=== PATIENT | female | born 1955 | race Caucasian/White ===

== ENCOUNTER 2019-08-23 13:17 | Emergency (ER) | payer OTHER, MEDICAID ==
[~2019-08-23] VITALS: Ht 162.6 cm; Wt 72.0 kg
[2019-08-23 13:40] VITALS: BP 148/75
== END 2019-08-23 15:20 | disposition home or self-care (01) ==
LOC: ER 14:10
DX: S60.455A Superficial foreign body of left ring finger, initial encounter (principal); I10 Essential (primary) hypertension; X58.XXXA Exposure to other specified factors, initial encounter; Y93.89 Activity, other specified; Y92.89 Other specified places as the place of occurrence of the external cause; Y99.8 Other external cause status
CPT/HCPCS: 99284

== ENCOUNTER 2019-10-02 20:46 | Inpatient (IN) | payer OTHER, MEDICAID ==
[~2019-10-02] VITALS: Ht 154.9 cm; Wt 71.7 kg
[2019-10-02] MEDS ORDERED: SODIUM CHLORIDE 0.9% 1,000 ML IV ONE (20:57)
[2019-10-02] MEDS ORDERED: ONDANSETRON HCL 4MG/2ML INJ IV STA (21:12)
[2019-10-02] MEDS ORDERED: PANTOPRAZOLE SODIUM 40 MG/VIAL IV ONE (21:15)
[2019-10-02 22:14] LABS: BASOPHILS % 0.2 % (0.0-2.0); EOSINOPHILS % 0.1 % (0.0-5.0); HEMATOCRIT. 37.7 % (36.0-48.0); HEMOGLOBIN. 12.7 g/dL (12.0-16.0); LYMPHOCYTES % 11.4 % (20.0-50.0); MEAN CORPUSCULAR HEMOGLOBIN 29.9 pg (28.0-32.0); MEAN CORPUSCULAR VOLUME 89.1 fL (81.0-99.0); MEAN PLATELET VOLUME 9.4 fl (7.4-10.4); MONOCYTES % 5.8 % (2.0-8.0); NEUTROPHILS % 82.5 % (40.0-76.0); PLATELET 249 x1000/uL (130-400); RED BLOOD CELL COUNT 4.23 mill/uL (4.2-5.4); RED CELL DISTRIBUTION WIDTH 15.1 % (11.6-14.6)
[2019-10-02 22:19] LABS: PROTHROMBIN TIME 10.7 sec (9.6-11.0)
[2019-10-02 22:23] LABS: CHLORIDE 112 mEq/L (98-107)
[2019-10-03] VITALS (7 sets, daily range): BP systolic 106–125; BP diastolic 66–81
[2019-10-03] MEDS ORDERED: ACETAMINOPHEN 650MG/20.3ML UDC PO PRN (02:00)
[2019-10-03] MEDS ORDERED: ACETAMINOPHEN 325MG TABLET PO PRN (02:30)
[2019-10-03] MEDS ORDERED: NON FORMULARY PATIENT HOME MED XX SCH (03:45)
[2019-10-03] MEDS: MORPHINE SULFATE 2 MG/ML CPJ (NOT FOR IM USE) IV PRN ×2 (04:46→08:46)
[2019-10-03 05:29] LABS: HEMATOCRIT 34.6 % (36.0-48.0); HEMOGLOBIN 11.4 g/dL (12.0-16.0); MEAN CORPUSCULAR VOLUME 88.1 fL (81.0-99.0); PLATELET 208 x1000/uL (130-400); RED BLOOD CELL COUNT 3.92 mill/uL (4.2-5.4); RED CELL DISTRIBUTION WIDTH 15.1 % (11.6-14.6)
[2019-10-03] MEDS: PANTOPRAZOLE 80 MG in SODIUM CHLORIDE 0.9% 100 ML IV SCH ×2 (05:31→16:46)
[2019-10-03] MEDS ORDERED: HYDROCODONE/ACETAMINOPHEN 5/325MG TABLET PO PRN (11:45)
[2019-10-03] MEDS: SODIUM CHLORIDE 0.9% 1,000 ML IV SCH ×2 (13:08→15:21)
[2019-10-03] MEDS: IPRATROPIUM/ALBUTEROL 0.5-3(2.5)MG/3ML NEB HHN PRN ×2 (13:08→16:22)
[2019-10-03] MEDS: CEFTRIAXONE 1 G PREMIX 50 ML IV SCH (15:48)
[2019-10-03] MEDS: SUCRALFATE 1 G/10 ML UDC PO SCH ×2 (17:54→22:13)
[2019-10-03] MEDS: HYDROMORPHONE HCL/PF 2MG/ML CPJ IV PRN ×2 (18:00→23:12)
[2019-10-03 20:53] LABS: HEMATOCRIT 29.1 % (36.0-48.0); HEMOGLOBIN 9.6 g/dL (12.0-16.0); MEAN CORPUSCULAR VOLUME 88.1 fL (81.0-99.0); PLATELET 218 x1000/uL (130-400); RED BLOOD CELL COUNT 3.31 mill/uL (4.2-5.4); RED CELL DISTRIBUTION WIDTH 14.9 % (11.6-14.6)
[2019-10-03 21:03] LABS: HEPATITIS B SURFACE ANTIGEN NEGATIVE
[2019-10-03 21:33] LABS: HEPATITIS A AB IGM NEGATIVE (NEGATIVE)
[2019-10-03 23:44] LABS: HEMATOCRIT 26.6 % (36.0-48.0); HEMOGLOBIN 8.9 g/dL (12.0-16.0); MEAN CORPUSCULAR HEMOGLOBIN 29.6 pg (28.0-32.0); MEAN CORPUSCULAR VOLUME 88.5 fL (81.0-99.0); PLATELET 191 x1000/uL (130-400); RED BLOOD CELL COUNT 3.01 mill/uL (4.2-5.4); RED CELL DISTRIBUTION WIDTH 15.1 % (11.6-14.6)
[2019-10-03 23:45] LABS: HEMATOCRIT 26.8 % (36.0-48.0); MEAN CORPUSCULAR HEMOGLOBIN 29.6 pg (28.0-32.0); MEAN CORPUSCULAR VOLUME 88.6 fL (81.0-99.0); PLATELET 193 x1000/uL (130-400); RED BLOOD CELL COUNT 3.03 mill/uL (4.2-5.4); RED CELL DISTRIBUTION WIDTH 15.1 % (11.6-14.6)
[2019-10-04] VITALS (15 sets, daily range): BP systolic 84–132; BP diastolic 45–111
[2019-10-04] MEDS: HYDROMORPHONE HCL/PF 2MG/ML CPJ IV PRN ×2 (04:18→09:25)
[2019-10-04] MEDS: PANTOPRAZOLE 80 MG in SODIUM CHLORIDE 0.9% 100 ML IV SCH (06:57)
[2019-10-04 07:16] LABS: BASOPHILS % 0.9 % (0.0-2.0); EOSINOPHILS % 1.3 % (0.0-5.0); HEMOGLOBIN. 9.3 g/dL (12.0-16.0); MEAN CORPUSCULAR HEMOGLOBIN 29.4 pg (28.0-32.0); MEAN CORPUSCULAR VOLUME 88.6 fL (81.0-99.0); MONOCYTES % 8.4 % (2.0-8.0); NEUTROPHILS % 60.4 % (40.0-76.0); PLATELET 208 x1000/uL (130-400); RED BLOOD CELL COUNT 3.16 mill/uL (4.2-5.4); RED CELL DISTRIBUTION WIDTH 15.4 % (11.6-14.6)
[2019-10-04] MEDS: SUCRALFATE 1 G/10 ML UDC PO SCH ×4 (07:30→21:32)
[2019-10-04 07:37] LABS: CHLORIDE 114 mEq/L (98-107)
[2019-10-04] MEDS: SODIUM CHLORIDE 0.9% 1,000 ML IV SCH ×2 (09:00→19:00)
[2019-10-04] MEDS ORDERED: HYDROCODONE/ACETAMINOPHEN 5/325MG TABLET PO PRN (09:30)
[2019-10-04] MEDS: ONDANSETRON HCL 4MG/2ML INJ IV PRN (10:07)
[2019-10-04 13:36] LABS: HEMATOCRIT 28.4 % (36.0-48.0); HEMOGLOBIN 9.3 g/dL (12.0-16.0); MEAN CORPUSCULAR HEMOGLOBIN 29.2 pg (28.0-32.0); MEAN CORPUSCULAR VOLUME 89.5 fL (81.0-99.0); PLATELET 213 x1000/uL (130-400); RED BLOOD CELL COUNT 3.17 mill/uL (4.2-5.4); RED CELL DISTRIBUTION WIDTH 15.1 % (11.6-14.6)
[2019-10-04 14:02] LABS: CHLORIDE 115 mEq/L (98-107)
[2019-10-04] MEDS ORDERED: MIDAZOLAM HCL 5 MG/5 ML VIAL IV PRN (15:34)
[2019-10-04] MEDS ORDERED: FENTANYL CITRATE/PF 50MCG/ML 2ML VIAL ONE (15:34)
[2019-10-04] MEDS ORDERED: FENTANYL CITRATE/PF 50MCG/ML 2ML VIAL IV PRN (15:34)
[2019-10-04] MEDS ORDERED: MIDAZOLAM HCL 5 MG/5 ML VIAL ONE (15:34)
[2019-10-04] MEDS: CEFTRIAXONE 1 G PREMIX 50 ML IV SCH (21:33)
[2019-10-05] VITALS (9 sets, daily range): BP systolic 108–129; BP diastolic 55–85
[2019-10-05] MEDS: SODIUM CHLORIDE 0.9% 1,000 ML IV SCH ×2 (05:00→14:06)
[2019-10-05] MEDS: HYDROMORPHONE HCL/PF 2MG/ML CPJ IV PRN ×3 (05:09→20:33)
[2019-10-05] MEDS: SUCRALFATE 1 G/10 ML UDC PO SCH (06:02)
[2019-10-05 07:35] LABS: BASOPHILS % 0.8 % (0.0-2.0); EOSINOPHILS % 1.4 % (0.0-5.0); HEMATOCRIT. 25.2 % (36.0-48.0); HEMOGLOBIN. 8.4 g/dL (12.0-16.0); MEAN CORPUSCULAR HEMOGLOBIN 29.6 pg (28.0-32.0); MEAN CORPUSCULAR VOLUME 89.2 fL (81.0-99.0); MEAN PLATELET VOLUME 8.8 fl (7.4-10.4); MONOCYTES % 8.8 % (2.0-8.0); PLATELET 191 x1000/uL (130-400); RED BLOOD CELL COUNT 2.83 mill/uL (4.2-5.4); RED CELL DISTRIBUTION WIDTH 15.1 % (11.6-14.6)
[2019-10-05] MEDS: PANTOPRAZOLE SODIUM 40 MG/VIAL IV SCH (08:23)
[2019-10-05 08:32] LABS: CHLORIDE 113 mEq/L (98-107)
[2019-10-05] MEDS ORDERED: LIDOCAINE HCL 1% 20ML VIAL (Pyxis) INJ ONE (09:19)
[2019-10-05] MEDS ORDERED: SODIUM BICARBONATE 4% (2.4MEQ) 5ML VIAL IV ONE (09:19)
[2019-10-05] MEDS: LORAZEPAM 0.5MG TABLET PO PRN ×2 (10:07→23:48)
[2019-10-05] MEDS ORDERED: IOHEXOL-300 50 ML BOTTLE IV ONE (11:18)
[2019-10-05] MEDS ORDERED: FENTANYL CITRATE/PF 50MCG/ML 2ML VIAL ONE (11:48)
[2019-10-05] MEDS ORDERED: MIDAZOLAM HCL 5 MG/5 ML VIAL ONE (11:48)
[2019-10-05] MEDS ORDERED: SIMETHICONE 40 MG/0.6 ML 30ML ONE (11:48)
[2019-10-05] MEDS ORDERED: FENTANYL CITRATE/PF 50MCG/ML 2ML VIAL IV PRN (12:03)
[2019-10-05] MEDS ORDERED: MIDAZOLAM HCL 2 MG/2 ML VIAL IV PRN (12:04)
[2019-10-05] MEDS ORDERED: DIAZEPAM 5 MG/ML 2ML CPJ IV PRN (12:06)
[2019-10-05] MEDS ORDERED: DIAZEPAM 5 MG/ML 2ML CPJ ONE ×2 (12:09→12:16)
[2019-10-05] MEDS ORDERED: DIPHENHYDRAMINE 50MG/ML VIAL IV PRN (12:14)
[2019-10-05] MEDS ORDERED: DIPHENHYDRAMINE 50MG/ML VIAL ONE (12:19)
[2019-10-05] MEDS: SUCRALFATE 1G TABLET PO SCH ×3 (13:53→22:20)
[2019-10-05] MEDS: CEFTRIAXONE 1 G PREMIX 50 ML IV SCH (14:05)
[2019-10-05] MEDS ORDERED: POTASSIUM CHLORIDE 20MEQ TABLET SR PO NR (15:45)
[2019-10-05] MEDS: METOCLOPRAMIDE HCL 10MG/2ML VIAL IV SCH ×2 (17:10→22:20)
[2019-10-05] MEDS ORDERED: SUCRALFATE 1 G/10 ML UDC PO SCH (17:30)
[2019-10-06] VITALS (7 sets, daily range): BP systolic 110–144; BP diastolic 71–111
[2019-10-06] MEDS: HYDROMORPHONE HCL/PF 2MG/ML CPJ IV PRN ×2 (01:07→06:05)
[2019-10-06] MEDS: ONDANSETRON HCL 4MG/2ML INJ IV PRN (01:47)
[2019-10-06] MEDS: PANTOPRAZOLE SODIUM 40 MG/VIAL IV SCH (08:54)
[2019-10-06] MEDS: SUCRALFATE 1G TABLET PO SCH ×2 (08:54→11:49)
[2019-10-06] MEDS: METOCLOPRAMIDE HCL 10MG/2ML VIAL IV SCH ×2 (08:54→11:49)
[2019-10-06] MEDS ORDERED: POTASSIUM CHLORIDE 20MEQ/PACKET PO SCH (10:15)
[2019-10-06] MEDS ORDERED: QUET100T MT (10:20)
[2019-10-06] MEDS ORDERED: ARIP15TA2 PO (11:14)
[2019-10-06] MEDS ORDERED: TRAZ150T78 PO (11:14)
[2019-10-06] MEDS ORDERED: CLON2TAB MT (11:14)
[2019-10-06] MEDS ORDERED: VENL75CA55 PO (11:15)
[2019-10-06] MEDS ORDERED: SUCR1TAB30 PO (11:55)
[2019-10-06] MEDS ORDERED: PROT40 MT (11:55)
== END 2019-10-06 14:15 | disposition home or self-care (01) | DRG 871 ==
LOC: ER 20:46 → 6WST 22:37 → EDBEDREQ 22:47 → EDBEDREQTM 22:47 → ENRESERV 10-03 00:05 → 5EST 10-03 14:20 → 5WST 10-06 10:07
PROVIDERS: ADMIT Internal Medicine; ATTEND Internal Medicine
PROC: 02HV33Z Insertion of Infusion Device into Superior Vena Cava, Percutaneous Approach (ICD-10-PCS; principal; 2019-10-05)
PROC: B548ZZA Ultrasonography of Superior Vena Cava, Guidance (ICD-10-PCS; 2019-10-05)
PROC: B5181ZA Fluoroscopy of Superior Vena Cava using Low Osmolar Contrast, Guidance (ICD-10-PCS; 2019-10-05)
PROC: B51M1ZZ Fluoroscopy of Right Upper Extremity Veins using Low Osmolar Contrast (ICD-10-PCS; 2019-10-05)
PROC: 0DB68ZX Excision of Stomach, Via Natural or Artificial Opening Endoscopic, Diagnostic (ICD-10-PCS; 2019-10-05)
DX: A41.9 Sepsis, unspecified organism (principal); K22.6 Gastro-esophageal laceration-hemorrhage syndrome; R65.21 Severe sepsis with septic shock; K22.11 Ulcer of esophagus with bleeding; K25.4 Chronic or unspecified gastric ulcer with hemorrhage; E87.2 Acidosis; K22.10 Ulcer of esophagus without bleeding; D64.9 Anemia, unspecified; Z96.642 Presence of left artificial hip joint; A08.4 Viral intestinal infection, unspecified; E05.90 Thyrotoxicosis, unspecified without thyrotoxic crisis or storm; E03.9 Hypothyroidism, unspecified; Z60.2 Problems related to living alone; J44.9 Chronic obstructive pulmonary disease, unspecified; I10 Essential (primary) hypertension; Z87.891 Personal history of nicotine dependence; Z98.1 Arthrodesis status
CPT/HCPCS: 36415; 36573; 71045; 74176; 76700; 76937; 80048; 80076; 80320; 82105; 83605; 83880; 84145; 84484; 85027; 86705; 86709; 86803; 86850; 86870; 86900; 87340; 88305; 88312; 88313; 93005; 94640; 96361; 96374; 99291; C1725; C1769; C1893; C9113; J0696; J1170; J1200; J2250; J2270; J2405; J2765; J3010; J3490; J7030; J7050; J7620; Q9967; G0480

== ENCOUNTER 2019-10-08 09:24 | Inpatient (IN) | payer OTHER, MEDICAID ==
[~2019-10-08] VITALS: Ht 154.9 cm; Wt 72.1 kg
[~2019-10-08 09:24] MED LIST: ARIP15TA2 PO; CLON2TAB MT; PROT40 MT; QUET100T MT; SUCR1TAB30 PO; TRAZ150T78 PO; VENL75CA55 PO
[2019-10-08] MEDS ORDERED: PANTOPRAZOLE SODIUM 40 MG/VIAL IV STA (10:12)
[2019-10-08] MEDS ORDERED: PANTOPRAZOLE 80 MG in SODIUM CHLORIDE 0.9% 100 ML IV STA (10:12)
[2019-10-08] MEDS ORDERED: SODIUM CHLORIDE 0.9% 1000ML BAG (SEPSIS BOLUS) IV ONE (10:15)
[2019-10-08] MEDS ORDERED: VANCOMYCIN 1 G PREMIX 200 ML IV ONE (10:15)
[2019-10-08] MEDS ORDERED: PIPERACILLIN/TAZ 3.375G PREMIX 50 ML IV ONE (10:15)
[2019-10-08 10:50] LABS: BASOPHILS % 0.4 % (0.0-2.0); CHLORIDE 112 mEq/L (98-107); EOSINOPHILS % 2.6 % (0.0-5.0); HEMATOCRIT. 26.7 % (36.0-48.0); HEMOGLOBIN. 8.9 g/dL (12.0-16.0); MEAN CORPUSCULAR HEMOGLOBIN 30.2 pg (28.0-32.0); MEAN CORPUSCULAR VOLUME 91.1 fL (81.0-99.0); PLATELET 211 x1000/uL (130-400); RED BLOOD CELL COUNT 2.93 mill/uL (4.2-5.4); RED CELL DISTRIBUTION WIDTH 15.1 % (11.6-14.6)
[2019-10-08 10:53] LABS: PROTHROMBIN TIME 9.9 sec (9.6-11.0)
[2019-10-08 11:43] LABS: PARTIAL THROMBOPLASTIN TIME < 21.0 sec (23.4-31.0)
[2019-10-08 12:56] LABS: CLARITY URINE CLEAR (CLEAR); COLOR URINE YELLOW (YELLOW); KETONES URINE NEGATIVE (NEGATIVE); LEUKOCYTE ESTERASE URINE NEGATIVE (NEGATIVE); NITRITE URINE NEGATIVE (NEGATIVE); OCCULT BLOOD URINE NEGATIVE (NEGATIVE); PROTEIN URINE TRACE (NEGATIVE); SPECIFIC GRAVITY URINE 1.019 (1.005-1.030)
[2019-10-08] MEDS ORDERED: DIPHENHYDRAMINE 50MG/ML VIAL IV PRN (14:15)
[2019-10-08] MEDS ORDERED: ACETAMINOPHEN 325MG TABLET PO PRN (14:15)
[2019-10-08] MEDS ORDERED: ONDANSETRON HCL 4MG/2ML INJ IV PRN (14:15)
[2019-10-08 14:24] LABS: PHOSPHORUS 3.9 mg/dL (2.5-4.9)
[2019-10-08 18:03] LABS: HEMATOCRIT 21.3 % (36.0-48.0); HEMOGLOBIN 7.1 g/dL (12.0-16.0)
[2019-10-08 20:36] VITALS: BP 113/69
[2019-10-08 22:19] VITALS: BP 96/63
[2019-10-08] MEDS ORDERED: CLONAZEPAM 1MG TABLET PO PRN (23:00)
[2019-10-08] MEDS: SUCRALFATE 1G TABLET PO SCH (23:33)
[2019-10-08] MEDS: TRAZODONE HCL 50MG TABLET PO SCH (23:33)
[2019-10-08] MEDS: SODIUM CHLORIDE 0.9% 1,000 ML IV SCH (23:34)
[2019-10-08] MEDS: QUETIAPINE FUMARATE 50MG TABLET PO SCH (23:34)
[2019-10-08] MEDS: PIPERACILLIN/TAZOBACTAM 3.375 G in DEXT 5% WATER 100 ML IV SCH (23:34)
[2019-10-09] VITALS (15 sets, daily range): BP systolic 108–169; BP diastolic 62–98
[2019-10-09] MEDS ORDERED: VANCOMYCIN 750 MG PREMIX 150 ML IV SCH (05:00)
[2019-10-09] MEDS: SUCRALFATE 1G TABLET PO SCH ×4 (06:00→21:56)
[2019-10-09] MEDS: PIPERACILLIN/TAZOBACTAM 3.375 G in DEXT 5% WATER 100 ML IV SCH ×2 (06:00→15:00)
[2019-10-09 06:59] LABS: BASOPHILS % 0.7 % (0.0-2.0); EOSINOPHILS % 3.2 % (0.0-5.0); HEMATOCRIT. 21.4 % (36.0-48.0); HEMOGLOBIN. 7.1 g/dL (12.0-16.0); MEAN CORPUSCULAR HEMOGLOBIN 29.5 pg (28.0-32.0); MEAN CORPUSCULAR VOLUME 88.4 fL (81.0-99.0); MONOCYTES % 7.3 % (2.0-8.0); NEUTROPHILS % 58.8 % (40.0-76.0); PLATELET 190 x1000/uL (130-400); RED BLOOD CELL COUNT 2.42 mill/uL (4.2-5.4); RED CELL DISTRIBUTION WIDTH 15.3 % (11.6-14.6)
[2019-10-09 07:23] LABS: CHLORIDE 113 mEq/L (98-107)
[2019-10-09] MEDS: ARIPIPRAZOLE 5MG TABLET PO SCH (08:12)
[2019-10-09] MEDS: VENLAFAXINE HCL 37.5MG SR CAPSULE 24HR PO SCH (08:13)
[2019-10-09] MEDS: SODIUM CHLORIDE 0.9% 1,000 ML IV SCH (12:00)
[2019-10-09] MEDS: PANTOPRAZOLE 40MG DR TABLET PO SCH (12:02)
[2019-10-09 14:15] LABS: TOTAL IRON BINDING CAPACITY 289 ug/dL (250-450)
[2019-10-09] MEDS: VANCOMYCIN 750 MG PREMIX 150 ML IV SCH (18:17)
[2019-10-09] MEDS: QUETIAPINE FUMARATE 50MG TABLET PO SCH (21:56)
[2019-10-09] MEDS: TRAZODONE HCL 50MG TABLET PO SCH (21:56)
[2019-10-10] VITALS (11 sets, daily range): BP systolic 119–151; BP diastolic 22–92
[2019-10-10] MEDS: SODIUM CHLORIDE 0.9% 1,000 ML IV SCH (00:57)
[2019-10-10] MEDS ORDERED: PIPERACILLIN/TAZOBACTAM 3.375 G in DEXT 5% WATER 100 ML IV SCH (02:00)
[2019-10-10] MEDS: SUCRALFATE 1G TABLET PO SCH ×2 (06:06→12:04)
[2019-10-10] MEDS: PANTOPRAZOLE 40MG DR TABLET PO SCH (06:06)
[2019-10-10] MEDS: VANCOMYCIN 750 MG PREMIX 150 ML IV SCH (06:06)
[2019-10-10] MEDS: ARIPIPRAZOLE 5MG TABLET PO SCH (09:00)
[2019-10-10] MEDS: VENLAFAXINE HCL 37.5MG SR CAPSULE 24HR PO SCH (09:12)
[2019-10-10 09:45] LABS: HEMATOCRIT 28.1 % (36.0-48.0); HEMOGLOBIN 9.4 g/dL (12.0-16.0); MEAN CORPUSCULAR HEMOGLOBIN 29.6 pg (28.0-32.0); MEAN CORPUSCULAR VOLUME 88.9 fL (81.0-99.0); PLATELET 210 x1000/uL (130-400); RED BLOOD CELL COUNT 3.16 mill/uL (4.2-5.4)
[2019-10-10] MEDS ORDERED: BISACODYL 5MG TABLET PO PRN (12:45)
[2019-10-10] MEDS ORDERED: ASCO500T20 PO (13:55)
[2019-10-10] MEDS ORDERED: FERR325T23 PO (13:55)
[2019-10-10] MEDS ORDERED: PROT40 MT (13:55)
[2019-10-10] MEDS ORDERED: FERROUS SULFATE 325MG TABLET PO SCH (17:20)
[2019-10-10] MEDS ORDERED: ASCORBIC ACID 500 MG TABLET PO SCH (21:00)
== END 2019-10-10 15:14 | disposition home or self-care (01) | DRG 871 ==
LOC: ER 09:24 → 3WST 16:01 → EDBEDREQ 16:03 → EDBEDREQSVC 16:03 → EDBEDREQTM 16:03 → ENRESERV 18:22
PROVIDERS: ADMIT Internal Medicine; ATTEND Internal Medicine
PROC: 02HV33Z Insertion of Infusion Device into Superior Vena Cava, Percutaneous Approach (ICD-10-PCS; 2019-10-08)
PROC: B548ZZA Ultrasonography of Superior Vena Cava, Guidance (ICD-10-PCS; 2019-10-08)
PROC: 30233N1 Transfusion of Nonautologous Red Blood Cells into Peripheral Vein, Percutaneous Approach (ICD-10-PCS; principal; 2019-10-09)
DX: A41.9 Sepsis, unspecified organism (principal); R65.21 Severe sepsis with septic shock; E87.2 Acidosis; K92.2 Gastrointestinal hemorrhage, unspecified; D64.9 Anemia, unspecified; E03.9 Hypothyroidism, unspecified; F41.9 Anxiety disorder, unspecified; E86.0 Dehydration; I10 Essential (primary) hypertension; K21.9 Gastro-esophageal reflux disease without esophagitis; J45.909 Unspecified asthma, uncomplicated; Z79.899 Other long term (current) drug therapy; Z87.19 Personal history of other diseases of the digestive system
CPT/HCPCS: 36415; 71045; 76937; 80202; 81003; 82270; 82728; 83540; 83550; 83605; 83735; 83880; 84100; 84145; 84484; 85014; 85018; 85027; 86850; 86870; 86900; 86920; 93005; 96365; 96367; 96375; 99291; C1725; C9113; J2543; J3370; J7030; J7050; J7060; P9016